=== PATIENT | female | born 1975 | race American Indian/Alaskan Native ===

== ENCOUNTER 2018-01-17 22:48 | Inpatient (IN) | payer BC ==
[2018-01-18 01:03] LABS: Basophils # (Auto) 0.1 K/mm3 (0.0-0.1); Basophils % (Auto) 0.8 % (0.0-1.8); Eosinophils # (Auto) 0.2 K/mm3 (0.0-0.4); Eosinophils % (Auto) 1.8 % (0.0-4.3); Hematocrit 38.1 % (30.3-42.9); Hemoglobin 12.6 gm/dl (10.1-14.3); Lymphocytes # (Auto) 2.1 K/mm3 (1.2-5.4); Lymphocytes % (Auto) 21.8 % (13.4-35.0); Mean Corpuscular HGB Conc 33 % (30-34); Mean Corpuscular Hemoglobin 29 pg (28-32); Mean Corpuscular Volume 87 fl (79-97); Monocytes # (Auto) 0.8 K/mm3 (0.0-0.8); Monocytes % (Auto) 8.2 % (0.0-7.3); Platelet Count 337 K/mm3 (140-440); Red Blood Count 4.38 M/mm3 (3.65-5.03); Red Cell Distribution Width 13.6 % (13.2-15.2)
[2018-01-18 01:14] LABS: INR 0.95 (0.87-1.13); Partial Thromboplastin Time 28.8 Sec. (24.2-36.6)
[2018-01-18 01:15] LABS: Thrombin Time 16.6 Sec. (15.1-19.6)
[2018-01-18 01:30] LABS: BUN/Creatinine Ratio 13; Blood Urea Nitrogen 22 mg/dL (7-17); Calcium 9.5 mg/dL (8.4-10.2); Hemolysis Index 7
--- NOTE | 2018-01-18 03:05 | Emergency Department Report ---
HPI - General Chief Complaint: Neuro Symptoms/Deficit Time Seen by Provider: 01/18/18 02:44 - HPI HPI: 42-year-old [place] female presents to the emergency department with a complaint of right-sided numbness that has been going on since earlier this afternoon. It started off in her arm and then spread to her leg and the right side of her face. It is associated with some generalized dizziness and some blurry vision. She denies any slurred speech, chest pain, facial asymmetry, weakness, fever. She has a history of hypertension and borderline diabetes. She did not take anything for her symptoms prior presentation. No recent travel or sick contacts at home. ED Past Medical Hx - Past Medical History Previous Medical History?: Yes Hx Hypertension: Yes Hx Arthritis: Yes (knee) Additional medical history: fibroids. last blood transfusion: May - Surgical History Past Surgical History?: Yes Additional Surgical History: hysterectomy 2015 - Social History Smoking Status: Never Smoker Substance Use Type: None - Medications Home Medications: Home Medications Medication Instructions Recorded Confirmed Last Taken Type Amlodipine Bes/Olmesartan Med 1 tab PO DAILY 11/15/15 11/15/15 Unknown History [Sylvester 10-20 mg] Ferrous Sulfate [Feosol 325 MG tab] 325 mg PO QDAY 11/15/15 11/15/15 Unknown History Hydrochlorothiazide [HCTZ] 25 mg PO QDAY 11/15/15 11/15/15 Unknown History Megestrol [Megace] 40 mg PO QDAY 11/15/15 11/15/15 Unknown History Tranexamic Acid [Lysteda] 1,300 mg PO TID 11/15/15 11/15/15 Unknown History ED Review of Systems ROS: Stated complaint: CP Other details as noted in HPI Comment: All other systems reviewed and negative Constitutional: denies: chills, fever Eyes: denies: eye pain, eye discharge, vision change ENT: denies: ear pain, throat pain Respiratory: denies: cough, shortness of breath, wheezing Cardiovascular: denies: chest pain, palpitations Gastrointestinal: denies: abdominal pain, nausea, diarrhea Genitourinary: denies: urgency, dysuria, discharge Musculoskeletal: denies: back pain, joint swelling, arthralgia Skin: denies: rash, lesions Neurological: numbness, other (dizziness). denies: headache Physical Exam - Physical Exam Vital Signs: Vital Signs 01/18/18 00:05 Temperature 97.8 F Pulse Rate 83 Respiratory 18 Rate Blood Pressure 155/106 O2 Sat by Pulse 100 Oximetry Physical Exam: GENERAL: The patient is well-developed well-nourished. HENT: Normocephalic. Atraumatic. Patient has moist mucous membranes. EYES: Extraocular motions are intact. Pupils equal reactive to light bilaterally. No nystagmus. NECK: Supple. Trachea is midline. CHEST/LUNGS: Clear to auscultation. There is no respiratory distress noted. HEART/CARDIOVASCULAR: Regular. There is no tachycardia. There is no murmur. ABDOMEN: Abdomen is soft, nontender. Patient has normal bowel sounds. Obese habitus. SKIN: There is no rash. There is no edema. There is no diaphoresis. NEURO: The patient is awake, alert, and oriented. The patient is cooperative. No motor deficits. There is decreased sensation and/or numbness to the right side when compared to the left. The patient has normal speech and gait. No pronator drift. No dysmetria. MUSCULOSKELETAL: There is no tenderness or deformity. There is no limitation range of motion. There is no evidence of acute injury. Muscle strength 5 out of 5 upper and lower extremities bilaterally. ED Course Vital Signs 01/18/18 00:05 Temperature 97.8 F Pulse Rate 83 Respiratory 18 Rate Blood Pressure 155/106 O2 Sat by Pulse 100 Oximetry - Reevaluation(s) Reevaluation #1: The patient has a NIH stroke scale of one secondary to subjective decreased sensation to the right side of the face, arm and leg compared to the left. There is no exact last known well time and the patient is very low on the NIH stroke scale and therefore is not a TPA candidate. She is allergic to aspirin. 01/18/18 04:36 ED Medical Decision Making - Lab Data Result diagrams: 01/18/18 00:39 01/18/18 00:39 - EKG Data -: EKG Interpreted by Me EKG shows normal: sinus rhythm, axis, intervals, QRS complexes (Q waves to the septal leads, LVH), ST-T waves Rate: normal - EKG Data When compared to previous EKG there are: no significant change Interpretation: unchanged when compared t (02/08/10) - Radiology Data Radiology results: report reviewed CT of the head without contrast shows no evidence of acute stroke or hemorrhage. Remote lacunar infarct in the right caudate nucleus. - Medical Decision Making Patient presents with right-sided numbness that started earlier this afternoon and has continued since. There are no other neurological deficits appreciated and this puts her at a NIH stroke scale of 1. She is not a TPA candidate. However since she has a history of hypertension, borderline diabetes, and has a CT scan that shows a previous remote lacunar infarct, I feel it is prudent that the patient is admitted for MRI and further evaluation. No aspirin was given as she has this listed as an allergy. Vital signs stable. Labs have been unremarkable and do not show any etiology of her symptoms. She was accepted for admission by the hospitalist, Dr. Bermeo. - Differential Diagnosis CVA, TIA, Hypoglycemia, Electrolyte Abnormalities Critical Care Time: No Critical care attestation.: If time is entered above; I have spent that time in minutes in the direct care of this critically ill patient, excluding procedure time. ED Disposition Clinical Impression: Numbness on right side Hypertension Qualifiers: Hypertension type: unspecified Qualified Code(s): I10 - Essential (primary) hypertension Disposition: OP ADMIT IP TO THIS HOSP Is pt being admited?: Yes Does the pt Need Aspirin: No Condition: Stable Instructions: Hypertension (ED) Referrals: PRIMARY CAREMD [Primary Care Provider] - 3-5 Days Time of Disposition: 04:45
[2018-01-18] MEDS ORDERED: TYLENOL PO PRN (05:29)
[2018-01-18] MEDS ORDERED: ZOFRAN IV PRN (05:35)
[2018-01-18] MEDS ORDERED: TRANEXAMIC ACID 1300 MG PO SCH (08:00)
--- NOTE | 2018-01-18 08:48 | Event Note ---
Date: 01/18/18 Patient followed by . D/w .
--- NOTE | 2018-01-18 09:00 | Cat Scan Report ---
FINAL REPORT EXAM: CT HEAD/BRAIN WO CON HISTORY: neuro deficits < 6hrs or sx present upon awakening TECHNIQUE: Routine axial imaging was obtained of the brain without IV contrast. There are no previous studies available for comparison. FINDINGS: There is a remote lacunar infarct in the right caudate nucleus. There is no evidence of acute stroke or hemorrhage. The ventricular system is appropriate in size and is symmetric. The visualized sinuses are clear. The mastoid air cells are well pneumatized. The calvarium appears intact. IMPRESSION: No evidence of acute stroke or hemorrhage. Remote lacunar infarct in the right caudate nucleus.
[2018-01-18] MEDS ORDERED: HCTZ PO SCH (10:00)
[2018-01-18] MEDS ORDERED: NON-FORMULARY (Amlodipine Bes/Olmesartan Med [Azor 10-20 Mg] 1 TAB) PO SCH (10:00)
[2018-01-18] MEDS: MEGACE PO SCH (11:39)
[2018-01-18] MEDS: COZAAR PO SCH (11:40)
[2018-01-18] MEDS: FEOSOL PO SCH (11:40)
[2018-01-18] MEDS: NORVASC PO SCH (11:41)
[2018-01-18 11:49] LABS: Calcium 9.3 mg/dL (8.4-10.2)
--- NOTE | 2018-01-18 14:48 | Magnetic Resonance Report ---
FINAL REPORT EXAM: MR BRAIN WO CON HISTORY: RIGHT SIDED NUMNESS TECHNIQUE: Multiplanar multisequence brain MR imaging without IV contrast. PRIORS: Head CT 01/18/2018 FINDINGS: Slight debris right frontal sinus superiorly. The other paranasal sinuses are clear as are the mastoid air cells and middle ear cavities. 2 small chronic lacunar infarcts in right caudate head.The included air filled sinuses contain no acute fluid level. The brain is without mass, mass effect, hemorrhage, or acute infarct. There is no midline shift or brain edema. There are no areas of brain restricted diffusion to suggest an acute ischemic infarct. The ventricles and sulci are age-appropriate. IMPRESSION: No acute CVA or brain mass Two small chronic lacunar infarcts in the right caudate head
--- NOTE | 2018-01-18 17:47 | Progress Note ---
Assessment and Plan Assessment and plan: Numbness right upper ext. To r/o stroke MRI brain neg for acute stroke Hypertensive urgency. Continue Norvasc and Losartan. . Add Hydraalazine Acute on CKD. Give iv fluids and repeat BMP. Morbid obesity. Counseled on diet and exercise. DVT prophylaxis History Interval history: Numbness right upper extremity Hospitalist Physical - Physical exam Narrative exam: General: Not in acute distress, morbidly obese HEENT:Normocephalic, atraumatic Neck:supple,no JVD Lungs: Clear to auscultation bilaterally, no crackles, no wheeze Heart:S1 and S2 regular tachycardia, no murmurs, rubs or gallop Abd: soft, non tender, non distended, normal bowel sounds Ext: No edema, no clubbing, no cyanosis Neuro: AAO x 3, moves all extremities. - Constitutional Vitals: Temp Pulse Resp BP Pulse Ox 98.0 F 66 16 174/102 97 01/18/18 10:35 01/18/18 11:41 01/18/18 10:35 01/18/18 11:41 01/18/18 10:35 Results - Labs CBC & Chem 7: 01/18/18 00:39 01/19/18 07:36 Labs: Laboratory Last Values WBC 9.4 K/mm3 (4.5-11.0) 01/18/18 00:39 RBC 4.38 M/mm3 (3.65-5.03) 01/18/18 00:39 Hgb 12.6 gm/dl (10.1-14.3) 01/18/18 00:39 Hct 38.1 % (30.3-42.9) 01/18/18 00:39 MCV 87 fl (79-97) 01/18/18 00:39 MCH 29 pg (28-32) 01/18/18 00:39 MCHC 33 % (30-34) 01/18/18 00:39 RDW 13.6 % (13.2-15.2) 01/18/18 00:39 Plt Count 337 K/mm3 (140-440) 01/18/18 00:39 Lymph % (Auto) 21.8 % (13.4-35.0) 01/18/18 00:39 [place] % (Auto) 8.2 % (0.0-7.3) H 01/18/18 00:39 Eos % (Auto) 1.8 % (0.0-4.3) 01/18/18 00:39 Baso % (Auto) 0.8 % (0.0-1.8) 01/18/18 00:39 Lymph # 2.1 K/mm3 (1.2-5.4) 01/18/18 00:39 [place] # 0.8 K/mm3 (0.0-0.8) 01/18/18 00:39 Eos # 0.2 K/mm3 (0.0-0.4) 01/18/18 00:39 Baso # 0.1 K/mm3 (0.0-0.1) 01/18/18 00:39 Seg Neutrophils % 67.4 % (40.0-70.0) 01/18/18 00:39 Seg Neutrophils # 6.3 K/mm3 (1.8-7.7) 01/18/18 00:39 PT 13.1 Sec. (12.2-14.9) 01/18/18 00:39 INR 0.95 (0.87-1.13) 01/18/18 00:39 APTT 28.8 Sec. (24.2-36.6) 01/18/18 00:39 Thrombin Time 16.6 Sec. (15.1-19.6) 01/18/18 00:39 Sodium 140 mmol/L (137-145) 01/18/18 10:36 Potassium 3.4 mmol/L (3.6-5.0) L 01/18/18 10:36 Chloride 104.8 mmol/L (98-107) 01/18/18 10:36 Carbon Dioxide 23 mmol/L (22-30) 01/18/18 10:36 Anion Gap 16 mmol/L 01/18/18 10:36 BUN 19 mg/dL (7-17) H 01/18/18 10:36 Creatinine 1.4 mg/dL (0.7-1.2) H 01/18/18 10:36 Estimated GFR 50 ml/min 01/18/18 10:36 BUN/Creatinine Ratio 14 % 01/18/18 10:36 Glucose 84 mg/dL (65-100) 01/18/18 10:36 Calcium 9.3 mg/dL (8.4-10.2) 01/18/18 10:36 Troponin T < 0.010 ng/mL (0.00-0.029) 01/18/18 00:39
[2018-01-19] MEDS: NACL 0.9% 1000 ML 1,000 ML IV SCH ×2 (02:19→09:34)
[2018-01-19] MEDS: APRESOLINE IV PRN (08:45)
[2018-01-19 08:55] LABS: Calcium 8.5 mg/dL (8.4-10.2)
[2018-01-19] MEDS: COZAAR PO SCH (09:32)
[2018-01-19] MEDS: NORVASC PO SCH (09:32)
[2018-01-19] MEDS: FEOSOL PO SCH (09:32)
[2018-01-19] MEDS ORDERED: APRESOLINE IV ONE (10:49)
[2018-01-19] MEDS: MEGACE PO SCH (10:59)
[2018-01-19] MEDS: APRESOLINE PO SCH ×2 (12:22→21:39)
[2018-01-19] MEDS: D5W 1,000 ML IV SCH (12:23)
[2018-01-19] MEDS ORDERED: NON-FORMULARY (Nebivolol Hcl [Bystolic] 10 MG) PO SCH (13:45)
[2018-01-19] MEDS ORDERED: TOPROL XL PO SCH (15:00)
[2018-01-19] MEDS ORDERED: AMBIEN PO PRN (17:17)
--- NOTE | 2018-01-19 17:18 | Progress Note ---
Assessment and Plan Assessment and plan: Numbness right upper ext. MRI brain neg for acute stroke Poss TIA Hypertensive urgency. Continue Norvasc and Losartan, Hydralazine. Add Betablocker. She was on Bystolic at home Acute on CKD. improved. Cr 1.2 today. Morbid obesity. Counseled on diet and exercise. DVT prophylaxis. Lovenox. Full code History Interval history: Numbness right upper extremity Hospitalist Physical - Physical exam Narrative exam: General: Not in acute distress, morbidly obese HEENT:Normocephalic, atraumatic Neck:supple,no JVD Lungs: Clear to auscultation bilaterally, no crackles, no wheeze Heart:S1 and S2 regular tachycardia, no murmurs, rubs or gallop Abd: soft, non tender, non distended, normal bowel sounds Ext: No edema, no clubbing, no cyanosis Neuro: AAO x 3, moves all extremities. - Constitutional Vitals: Temp Pulse Resp BP Pulse Ox 98.2 F 90 18 172/111 95 01/19/18 11:57 01/19/18 11:57 01/19/18 11:57 01/19/18 11:57 01/19/18 11:57 Results - Labs CBC & Chem 7: 01/18/18 00:39 01/19/18 07:36 Labs: Laboratory Last Values WBC 9.4 K/mm3 (4.5-11.0) 01/18/18 00:39 RBC 4.38 M/mm3 (3.65-5.03) 01/18/18 00:39 Hgb 12.6 gm/dl (10.1-14.3) 01/18/18 00:39 Hct 38.1 % (30.3-42.9) 01/18/18 00:39 MCV 87 fl (79-97) 01/18/18 00:39 MCH 29 pg (28-32) 01/18/18 00:39 MCHC 33 % (30-34) 01/18/18 00:39 RDW 13.6 % (13.2-15.2) 01/18/18 00:39 Plt Count 337 K/mm3 (140-440) 01/18/18 00:39 Lymph % (Auto) 21.8 % (13.4-35.0) 01/18/18 00:39 [place] % (Auto) 8.2 % (0.0-7.3) H 01/18/18 00:39 Eos % (Auto) 1.8 % (0.0-4.3) 01/18/18 00:39 Baso % (Auto) 0.8 % (0.0-1.8) 01/18/18 00:39 Lymph # 2.1 K/mm3 (1.2-5.4) 01/18/18 00:39 [place] # 0.8 K/mm3 (0.0-0.8) 01/18/18 00:39 Eos # 0.2 K/mm3 (0.0-0.4) 01/18/18 00:39 Baso # 0.1 K/mm3 (0.0-0.1) 01/18/18 00:39 Seg Neutrophils % 67.4 % (40.0-70.0) 01/18/18 00:39 Seg Neutrophils # 6.3 K/mm3 (1.8-7.7) 01/18/18 00:39 PT 13.1 Sec. (12.2-14.9) 01/18/18 00:39 INR 0.95 (0.87-1.13) 01/18/18 00:39 APTT 28.8 Sec. (24.2-36.6) 01/18/18 00:39 Thrombin Time 16.6 Sec. (15.1-19.6) 01/18/18 00:39 Sodium 150 mmol/L (137-145) H D 01/19/18 07:36 Potassium 3.8 mmol/L (3.6-5.0) 01/19/18 07:36 Chloride 114.5 mmol/L (98-107) H 01/19/18 07:36 Carbon Dioxide 25 mmol/L (22-30) 01/19/18 07:36 Anion Gap 14 mmol/L 01/19/18 07:36 BUN 17 mg/dL (7-17) 01/19/18 07:36 Creatinine 1.2 mg/dL (0.7-1.2) 01/19/18 07:36 Estimated GFR 59 ml/min 01/19/18 07:36 BUN/Creatinine Ratio 14 % 01/19/18 07:36 Glucose 99 mg/dL (65-100) 01/19/18 07:36 Calcium 8.5 mg/dL (8.4-10.2) 01/19/18 07:36 Troponin T < 0.010 ng/mL (0.00-0.029) 01/18/18 00:39
[2018-01-20] MEDS: NON-FORMULARY (Nebivolol Hcl [Bystolic] 10 MG) PO SCH ×2 (01:03→10:47)
[2018-01-20] MEDS: D5W 1,000 ML IV SCH (01:06)
[2018-01-20] MEDS: APRESOLINE PO SCH ×2 (06:07→12:44)
[2018-01-20] MEDS: APRESOLINE IV PRN (06:09)
[2018-01-20] MEDS ORDERED: LOVENOX SUB-Q SCH (08:00)
--- NOTE | 2018-01-20 09:33 | Discharge Summary ---
Providers - Providers Date of Admission: 01/18/18 05:24 Date of discharge: 01/20/18 Attending physician: LIGIA BARNEY 01/18/18 05:29 Physical Therapy Evaluation and Treat [CONS] Routine Comment: Reason For Exam: RIGHT SIDED NUMBNESS Primary care physician: TRAVEL DIRECTOR Hospitalization Condition: Fair Disposition: DC-01 TO HOME OR SELFCARE - Discharge Diagnoses (1) TIA (transient ischemic attack) Status: Acute Core Measure Documentation - Palliative Care Palliative Care/ Comfort Measures: Not Applicable - Core Measures Any of the following diagnoses?: none Exam - Constitutional Vitals: Temp Pulse Resp BP Pulse Ox 98.4 F 79 16 154/94 97 01/20/18 08:50 01/20/18 08:50 01/20/18 08:50 01/20/18 08:50 01/20/18 08:50 Plan Activity: advance as tolerated Diet: low fat, low cholesterol, low salt Additional Instructions: 1.Follow up with PCP or [facility] in 1 week. 2.Follow up with Dr. Davila, Neurology or Neurology of choice in 1 week Follow up with: PRIMARY CARE, [Primary Care Provider] - 3-5 Days Prescriptions: amLODIPine [Norvasc] 10 mg PO DAILY #30 tablet Clopidogrel Bisulfate [Plavix] 75 mg PO DAILY #30 tablet
[2018-01-20] MEDS: FEOSOL PO SCH (10:28)
[2018-01-20 10:42] LABS: BUN/Creatinine Ratio 11; Blood Urea Nitrogen 12 mg/dL (7-17); Calcium 9.3 mg/dL (8.4-10.2); Hemolysis Index 44
[2018-01-20] MEDS: NORVASC PO SCH (10:44)
[2018-01-20] MEDS: COZAAR PO SCH (10:46)
[2018-01-20] MEDS: MEGACE PO SCH (10:47)
[2018-01-20] MEDS ORDERED: NACL 0.9% 1000 ML 1,000 ML IV SCH (11:00)
[2018-01-20 11:14] LABS: Chol/HDL Ratio 3.34 %
--- NOTE | 2018-01-20 11:28 | History and Physical Report ---
CHIEF COMPLAINT: Numbness on the right side of the body. HISTORY OF PRESENT ILLNESS: The patient is a 42-year-old female who states she started feeling numb on the right side since yesterday. The patient states symptoms started in the arm and then spread down to the leg on the right side and also to the right side of the face. There is associated history of dizziness and some blurry vision with no weakness of the muscles of the limbs. There is also no speech impairment, no history of shortness of breath, chest pain or drooling in the mouth. The patient also denies history of nausea and vomiting. PAST MEDICAL HISTORY: Pertinent for hypertension, knee arthritis, fibroid disease. PAST SURGICAL HISTORY: Hysterectomy in 2016. FAMILY HISTORY: Noncontributory. SOCIAL HISTORY: The patient does not smoke, does not drink alcohol and does not use illicit drugs. MEDICATIONS: The patient is on Azopt, amlodipine besylate/olmesartan 10/20 mg 1 by mouth daily, ferrous sulfate 325 mg by mouth daily, thiazide 25 mg by mouth daily, Megace 40 mg by mouth daily, tranexamic acid listed 1300 mg by mouth t.i.d. ALLERGIES: The patient is allergic to ASPIRIN AND IBUPROFEN. REVIEW OF SYSTEMS: CONSTITUTIONAL: There is no fever, no chills, no diaphoresis. HEENT: There is no headache or sore throat. CARDIOVASCULAR: There is no chest pain or orthopnea. RESPIRATORY: There is no shortness of breath or cough. GASTROINTESTINAL: There is no nausea, no vomiting, no abdominal pain, diarrhea or constipation. NEUROLOGICAL: There is numbness on the right side of the body. There is also history of dizziness, blurry vision with no altered mental status. MUSCULOSKELETAL: There is no joint pain or swelling. DERMATOLOGICAL: There is no skin rash or itching. GENITOURINARY: There is no dysuria, hematuria or flank pain. Rest of system review is normal. PHYSICAL EXAMINATION: GENERAL: At the time of exam, the patient was found to be alert, oriented x 3 and not in acute distress. VITAL SIGNS: Shows temperature of 97.8 degrees Fahrenheit, pulse 63, respirations 18, blood pressure 162/78, O2 sat of 97% on room air. HEENT: Show pupils to be equal, round, reactive to light and accommodation. Extraocular muscles are intact. NECK: Supple with no JVD or carotid bruit. CARDIOVASCULAR: Showed normal first and second heart sounds with no gallops or murmurs. RESPIRATORY: Showed good air entry on both sides of the lung with no abnormal breath sounds. GASTROINTESTINAL: Show abdomen to be soft, full, nontender with no organomegaly or rigidity. NEUROLOGICAL: Shows no focal deficit. MUSCULOSKELETAL: Show no joint swelling or tenderness. DERMATOLOGICAL: Show no skin rash. GENITOURINARY: Showing no costovertebral angle tenderness. PERTINENT LABORATORY AND IMAGING STUDIES: The patient has CBC done with normal white count, normal hemoglobin and normal hematocrit. CBC differential showing elevated monocyte count of 8.2%. Coagulation studies were unremarkable. Chemistry shows low potassium level of 3.5 with elevated BUN of 22 and elevated creatinine of 1.7. Rest of chemistry was unremarkable. Troponin level came back normal. IMAGING STUDIES: Have not been posted under the patient's name in the system; however, the Emergency Room doctor who evaluated the patient said that the CT shows remote lacunar infarct. DIAGNOSES: 1. Right-sided numbness. 2. Acute kidney injury. PLAN: 1. The patient will be admitted to medical floor on telemetry and will have MRI of brain without contrast done this morning. 2. The patient will have bilateral carotid Doppler done this morning and complete 2D echo done this morning as well. 3. The patient will remain n.p.o. until swallow test is passed before she can start taking orally. 4. The patient will be on neuro check q. 4 hours. 5. The patient will be on Tylenol 650 mg by mouth every 4 hours as needed for fever and headache and will be on IV Zofran 4 mg every 8 hours for nausea and vomiting. The patient will also be on oxygen by nasal cannula 2 liters per minute and will have basic metabolic panel checked this morning. The patient will have Nephrology consult with Dr. Martin Senior for evaluation and treatment of acute kidney injury and will be on IV normal saline at 125 mL an hour. The patient's home medication will be reconciled and started as shown in the medication reconciliation session when she starts taking orally. ADDENDUM: The patient will have neurology consult whenever neurologist is available. Right now, there is no neurology consult for 01/18/2018. VANE
--- NOTE | 2018-01-20 12:46 | Progress Note ---
Assessment and Plan - Patient Problems (1) TIA (transient ischemic attack) Current Visit: Yes Status: Acute Hospitalist Physical - Constitutional Vitals: Temp Pulse Resp BP Pulse Ox 98.4 F 81 18 156/86 98 01/20/18 11:10 01/20/18 11:10 01/20/18 11:10 01/20/18 11:10 01/20/18 11:10 Results - Labs CBC & Chem 7: 01/18/18 00:39 01/20/18 10:04 Labs: Laboratory Last Values WBC 9.4 K/mm3 (4.5-11.0) 01/18/18 00:39 RBC 4.38 M/mm3 (3.65-5.03) 01/18/18 00:39 Hgb 12.6 gm/dl (10.1-14.3) 01/18/18 00:39 Hct 38.1 % (30.3-42.9) 01/18/18 00:39 MCV 87 fl (79-97) 01/18/18 00:39 MCH 29 pg (28-32) 01/18/18 00:39 MCHC 33 % (30-34) 01/18/18 00:39 RDW 13.6 % (13.2-15.2) 01/18/18 00:39 Plt Count 337 K/mm3 (140-440) 01/18/18 00:39 Lymph % (Auto) 21.8 % (13.4-35.0) 01/18/18 00:39 [place] % (Auto) 8.2 % (0.0-7.3) H 01/18/18 00:39 Eos % (Auto) 1.8 % (0.0-4.3) 01/18/18 00:39 Baso % (Auto) 0.8 % (0.0-1.8) 01/18/18 00:39 Lymph # 2.1 K/mm3 (1.2-5.4) 01/18/18 00:39 [place] # 0.8 K/mm3 (0.0-0.8) 01/18/18 00:39 Eos # 0.2 K/mm3 (0.0-0.4) 01/18/18 00:39 Baso # 0.1 K/mm3 (0.0-0.1) 01/18/18 00:39 Seg Neutrophils % 67.4 % (40.0-70.0) 01/18/18 00:39 Seg Neutrophils # 6.3 K/mm3 (1.8-7.7) 01/18/18 00:39 PT 13.1 Sec. (12.2-14.9) 01/18/18 00:39 INR 0.95 (0.87-1.13) 01/18/18 00:39 APTT 28.8 Sec. (24.2-36.6) 01/18/18 00:39 Thrombin Time 16.6 Sec. (15.1-19.6) 01/18/18 00:39 Sodium 123 mmol/L (137-145) L D 01/20/18 10:04 Potassium 3.6 mmol/L (3.6-5.0) 01/20/18 10:04 Chloride 87.9 mmol/L (98-107) L 01/20/18 10:04 Carbon Dioxide 22 mmol/L (22-30) 01/20/18 10:04 Anion Gap 17 mmol/L 01/20/18 10:04 BUN 12 mg/dL (7-17) 01/20/18 10:04 Creatinine 1.1 mg/dL (0.7-1.2) 01/20/18 10:04 Estimated GFR > 60 ml/min 01/20/18 10:04 BUN/Creatinine Ratio 11 % 01/20/18 10:04 Glucose 109 mg/dL (65-100) H 01/20/18 10:04 Calcium 9.3 mg/dL (8.4-10.2) 01/20/18 10:04 Troponin T < 0.010 ng/mL (0.00-0.029) 01/18/18 00:39 Triglycerides 113 mg/dL (2-149) 01/20/18 10:04 Cholesterol 174 mg/dL (50-199) 01/20/18 10:04 LDL Cholesterol Direct 110 mg/dL (50-130) 01/20/18 10:04 HDL Cholesterol 52 mg/dL (40-59) 01/20/18 10:04 Cholesterol/HDL Ratio 3.34 % 01/20/18 10:04
[2018-01-20 14:45] LABS: BUN/Creatinine Ratio 11; Blood Urea Nitrogen 12 mg/dL (7-17); Calcium 9.6 mg/dL (8.4-10.2); Hemolysis Index 2
[2018-01-20] MEDS ORDERED: PLAVIX PO SCH (16:00)
[2018-01-20 17:19] VITALS: BP 135/79
== END 2018-01-20 17:28 | disposition home or self-care (01) | DRG 683 ==
LOC: ED 22:48 → 4A 01-18 05:24
PROVIDERS: ADMIT Internal Medicine; ATTEND Internal Medicine
DX: N17.9 Acute kidney failure, unspecified (principal); G45.9 Transient cerebral ischemic attack, unspecified; Z68.41 Body mass index [BMI] 40.0-44.9, adult; I16.0 Hypertensive urgency; I12.9 Hypertensive chronic kidney disease with stage 1 through stage 4 chronic kidney disease, or unspecified chronic kidney disease; R73.03 Prediabetes; N18.9 Chronic kidney disease, unspecified; E66.01 Morbid (severe) obesity due to excess calories; M17.9 Osteoarthritis of knee, unspecified; Z90.710 Acquired absence of both cervix and uterus; Z88.6 Allergy status to analgesic agent; Z88.8 Allergy status to other drugs, medicaments and biological substances
CPT/HCPCS: 36415; 70450; 70551; 80048; 80061; 84484; 85025; 85610; 85670; 85730; 93005; 93010; 93306; 93880; 93970; 99285; J0360; J1650; J2405; J7030; J7070